=== PATIENT | male | born 1995 | race Caucasian/White ===

== ENCOUNTER 2018-02-24 21:07 | Emergency (ER) | payer SELFPAY ==
--- NOTE | 2018-02-25 00:20 | ER Document Report ---
HPI - HPI Pain Level: 5 Notes: Otherwise healthy 22-year-old male who presents with left upper tooth pain 3 days. Patient reports that he called a dentist who reports that they are unable to do an extraction if there is an active infection going on. Patient denies any fevers. Patient reports multiple "bad teeth". Past Medical History - General Information source: Patient - Social History Smoking Status: Current Every Day Smoker Frequency of alcohol use: None Drug Abuse: None Family History: Reviewed & Not Pertinent - Medical History Medical History: Negative Surgical Hx: Negative - Immunizations Immunizations up to date: Yes Vertical Provider Document - CONSTITUTIONAL Notes: PHYSICAL EXAMINATION: GENERAL: Well-appearing, well-nourished and in no acute distress. HEAD: Atraumatic, normocephalic. EYES: Pupils equal round extraocular movements intact, conjunctiva are normal. ENT: Nares patent, erythema noted to left upper gumline, multiple dental caries identified with fractured tooth where pain is located. No drainable abscess identified. NECK: Normal range of motion LUNGS: No respiratory distress Musculoskeletal: Normal range of motion NEUROLOGICAL: Normal speech, normal gait. PSYCH: Normal mood, normal affect. SKIN: Warm, Dry, normal turgor, no rashes or lesions noted. - INFECTION CONTROL TRAVEL OUTSIDE OF THE [place] IN LAST 30 DAYS: No Course - Re-evaluation Re-evalutation: No drainable abscess is identified, there is obvious erythema to the area of pain. I will give patient a hydrocodone dispense pack and placed him on Penicillin VK. Patient will be instructed to follow-up with a dentist, multiple resources are given for free dental clinic here in [place]. Patient encouraged to call this morning so that by the time he has an appointment any possible infection will have been under control so they can do the extraction. Discharge - Discharge Clinical Impression: Dental abscess Condition: Stable Disposition: HOME, SELF-CARE Instructions: Dentist Additional Instructions: TOOTHACHE: Your pain is due to dental decay. The tooth must be repaired in order for you to feel better. You will, therefore, be referred to a dentist. We do not have dentists on the staff at [facility]. Severe swelling or drainage around a tooth usually means a dental abscess. This also requires evaluation and treatment by the dentist, but antibiotics may be prescribed while awaiting dental treatment. You should be rechecked immediately if you develop major swelling of the face, increasing pain, a lump in the jaw or gums, headache, difficulty swallowing, or fever. ORAL NARCOTIC MEDICATION: You have been given a prescription for pain control. This medication is a narcotic. It's best taken with food, as nausea can result if taken on an empty stomach. Don't operate machinery or drive within six hours of taking this medication. Do not combine this medicine with alcohol, or with any medication which can cause sedation (such as cold tablets or sleeping pills) unless you get permission from the physician. Narcotics tend to cause constipation. If possible, drink plenty of fluids and eat a diet high in fiber and fruits. Please be aware that prescription narcotics also have the potential for abuse. People become addicted to these medications because of the general sense of wellbeing that they induce. This feeling along with a significant reduction in tension, anxiety, and aggression provides a stimulating seductive quality to these drugs. Once your pain is under control, we encourage you to discard your unused narcotics. PENICILLIN V K: You have been given a prescription for Penicillin VK. Your physician has determined that this is the best antibiotic for your condition. Pen VK can be taken with meals, however more of the antibiotic gets into the bloodstream if it's taken on an empty stomach. Penicillin usually has no side effects. However, allergy to penicillins is common. If you have had an allergic reaction to any drug of the penicillin family, you should never take any other penicillin. Notify your doctor at once if you develop hives, itching, swelling, faintness, or shortness of breath. Ibuprofen Ibuprofen is an excellent, safe drug for pain control. In addition, it has potent antiinflammatory effects which are beneficial, especially in the treatment of injuries, arthritis, or tendonitis. It's best to take ibuprofen with food. Persons with ulcer disease or allergy to aspirin should notify their physician of this before taking ibuprofen. Take the medication exactly as prescribed. Don't take additional doses unless instructed to do so by your doctor. If you develop wheezing, shortness of breath, hives, faintness, stomach pain, vomiting, or dark black stools, return for re-evaluation at once. FOLLOW-UP CARE: You have been referred for follow-up care to the dentists listed below. Call the dentists office for an appointment as you were instructed or within the next two days. If you experience worsening or a significant change in your symptoms, notify the physician immediately or return to the Emergency Department at any time for re-evaluation. [facility] [address] [place], [place] Friday mornings, by appointment [facility] [address] [place] [address] [facility] [address] [facility] [address] [facility] [address] [facility] [email or web address] Prescriptions: Lidocaine HCl [Xylocaine 2% Viscous Soln 20 ml Udcup] 20 ml MM TID #1 udc Penicillin V Potassium [Penicillin Vk 500 mg Tablet] 500 mg PO BID #20 tablet
[2018-02-25] MEDS ORDERED: PENICILLIN V POTASSIUM 250 MG TABLET PO ONE (00:22)
[2018-02-25] MEDS ORDERED: HYDROCODONE/ACETAMINOPHEN 5-325 MG (6 TAB/ER DISP) PO PRN (00:22)
[2018-02-25 00:48] VITALS: BP 121/68
== END 2018-02-25 00:49 | disposition home or self-care (01) ==
LOC: ER 21:07
DX: K04.7 Periapical abscess without sinus (principal); K08.89 Other specified disorders of teeth and supporting structures; F17.200 Nicotine dependence, unspecified, uncomplicated
CPT/HCPCS: 99282

== ENCOUNTER 2018-12-08 17:31 | Emergency (ER) | payer SELFPAY ==
--- NOTE | 2018-12-08 18:34 | ER Document Report ---
HPI <MIKIEQUITA - Last Filed: 12/08/18 21:44> - HPI Pain Level: 5 Notes: Patient is an otherwise healthy 23-year-old male presenting to the emergency department with pain to the left side of his head that is been present for 3 weeks. Patient reports that he feels like a dull pain, states it is very sensitive to touch reports this is located just above his left ear. He denies any trauma to the area. He denies any other symptoms to include fever or headache. He states that it feels like a pain only localized to this one area. <INDY SANTANA - Last Filed: 12/08/18 22:25> - HPI Time Seen by Provider: 12/08/18 18:15 Past Medical History - General Information source: Patient - Social History Smoking Status: Current Every Day Smoker Frequency of alcohol use: None Drug Abuse: None Family History: Reviewed & Not Pertinent - Medical History Medical History: Negative Renal/ Medical History: Denies: Hx Peritoneal Dialysis Surgical Hx: Negative - Immunizations Immunizations up to date: Yes <INDY SANTANA - Last Filed: 12/08/18 22:25> Vertical Provider Document - CONSTITUTIONAL Notes: PHYSICAL EXAMINATION: GENERAL: Well-appearing, well-nourished and in no acute distress. HEAD: Atraumatic, normocephalic. Tenderness to palpation to area over patient's left parietal lobe consistent with area where patient describes pain. No palpable masses or crepitus noted. EYES: Pupils equal round and reactive to light, extraocular movements intact, sclera anicteric, conjunctiva are normal. ENT: Nares patent, oropharynx clear without exudates. Moist mucous membranes. NECK: Normal range of motion, supple without lymphadenopathy LUNGS: Breath sounds clear to auscultation bilaterally and equal. No wheezes rales or rhonchi. HEART: Regular rate and rhythm without murmurs ABDOMEN: Soft, nontender, nondistended abdomen. No guarding, no rebound. No masses appreciated. Musculoskeletal: Normal range of motion, no pitting or edema. No cyanosis. NEUROLOGICAL: Cranial nerves grossly intact. Normal speech, normal gait. Normal sensory, motor exams PSYCH: Normal mood, normal affect. SKIN: Warm, Dry, normal turgor, no rashes or lesions noted. - INFECTION CONTROL TRAVEL OUTSIDE OF THE [place] IN LAST 30 DAYS: No <INDY SANTANA Kathleen - Last Filed: 12/08/18 22:25> Course - Re-evaluation Re-evalutation: 12/08/18 21:44 I personally evaluated this patient and agree with [facility] plan of care and disposition. I discussed patient's CT findings with the radiologist at this facility. The hemorrhage was questionable. Neurosurgery does not feel that there is acute hemorrhage. Patient is otherwise hemodynamically stable. He has no focal neurologic deficits. He is ambulating without any ataxia or difficulty. There is no external signs on his left scalp to suggest infection or trauma. Patient has tenderness to the left scalp over the lytic lesion. All questions were answered. He is in agreement with close follow-up at the neurosurgeons office tomorrow morning. He was counseled on return precautions. He is stable for discharge. - Vital Signs Vital signs: Temp Pulse Resp BP Pulse Ox 98.4 F 70 16 140/71 H 99 12/08/18 20:14 12/08/18 20:14 12/08/18 20:14 12/08/18 20:14 12/08/18 20:14 <QUITA RANDOLPH - Last Filed: 12/08/18 21:44> - Re-evaluation Re-evalutation: 12/08/18 20:00 Radiology report received for head CT. There is an irregular lytic lesion in the left parietal lobe with cortical breakthrough on both the inner and outer table. There is also extension within the diplopic space superiorly with lobular lytic contours. This could reflect a hemorrhage versus AV malformation versus neoplastic process. Neurosurgery consult is recommended by radiologist. I discussed this with my attending physician Dr. Randolph who is coming to evaluate the patient. 12/08/18 20:12 Call placed to [facility] to speak with neurosurgery sevbeverly. 12/08/18 20:51 Spoke with neurosurgeon at [facility], Dr. Hugo Emanuel. He would like patient to call him in the office tomorrow morning to schedule an appointment. He reviewed the images from the CTs which were transferred via our radiology department. He does not feel patient has any acute life-threatening ongoing events that requires emergent transfer. He does want to work the patient up for possible biopsy. - Vital Signs Vital signs: Temp Pulse Resp BP Pulse Ox 99.1 F 99 18 161/71 H 99 12/08/18 17:32 12/08/18 17:32 12/08/18 17:32 12/08/18 17:32 12/08/18 17:32 <INDY SANTANA - Last Filed: 12/08/18 22:25> Discharge <QUITA RANDOLPH Cheri - Last Filed: 12/08/18 21:44> <INDY SANTANA - Last Filed: 12/08/18 22:25> - Discharge Clinical Impression: Left parietal lobe lesion Head pain Qualifiers: Headache type: unspecified Headache chronicity pattern: unspecified pattern Intractability: not intractable Qualified Code(s): R51 - Headache Condition: Stable Disposition: HOME, SELF-CARE Additional Instructions: As discussed there is an irregularity on your CT scan today. There is a lesion on the left parietal bone and lobe. This could be cancerous. It is important for you to follow-up with neurosurgery so that they can do a thorough work-up on you. I have contacted Dr. Hugo Emanuel who is a neurosurgeon at [facility]. He would like to see you in the office tomorrow. Please call them first thing in the morning. Return to the emergency department with any new or worsening symptoms to include seizures, dizziness, lethargy, confusion or any other symptom that is concerning to you. I have written you a work note for today and tomorrow. Please have these neurosurgeon write you another work note if he needs you out of work any other days the rest of the week. Dr. Hugo Emanuel [facility] [address] [place], [place] [id number] Forms: Return to Work
--- NOTE | 2018-12-08 19:44 | RADIOLOGY REPORT (SQ) ---
EXAM DESCRIPTION: CT HEAD WITHOUT COMPLETED DATE/TIME: 12/08/2018 7:18 pm REASON FOR STUDY: pain superior to left ear x3 weeks COMPARISON: None. TECHNIQUE: Axial images acquired through the brain without intravenous contrast. Images reviewed wi th bone, brain and subdural windows. Images stored on PACS. All CT scanners at this facility use dose modulation, iterative reconstruction, and/or weight based d osing when appropriate to reduce radiation dose to as low as reasonably achievable (ALARA). [facility]: Dose Right [facility]: CareDose [facility]: Dose Right [facility]: Teradose 4D [facility]: [employer] RADIATION DOSE: CT Rad equipment meets quality standard of care and radiation dose reduction techniq ues were employed. CTDIvol: 53.2 mGy. DLP: 964 mGy-cm. mGy. LIMITATIONS: None. FINDINGS: VENTRICLES: Normal size and contour. CEREBRUM: Small 1.5 cm crescent of increased density in the left parietal lobe along the inner table of the skull at the site of a lytic lesion, possible hemorrhage. No midline shift. No evidence for acute infarction. Normal flores/white matter differentiation. No areas of low density in the white debbie er. CEREBELLUM: No masses. No hemorrhage. No alteration of density. No evidence for acute infarction. ORBITS AND GLOBE: No intra- or extraconal masses. Normal contour of globe without masses. CALVARIUM: Irregular lytic lesion in the left parietal bone with cortical breakthrough on both the in ner and outer table, there is also extension within the diploic space superiorly with lobular lytic c ontours. PARANASAL SINUSES: No fluid or mucosal thickening. SOFT TISSUES: No mass or hematoma. OTHER: No other significant finding. IMPRESSION: Irregular lytic lesion in the left parietal bone with cortical breakthrough on both the inner and outer table, there is also extension within the diploic space superiorly with lobular lytic contours. Small 1.5 cm crescent of increased density in the left parietal lobe along the inner table of the sku ll at the site of a lytic lesion, possible hemorrhage. This may reflect an arteriovenous malformation, neoplastic process is not excluded. Neurosurgical co nsultation is recommended. EVIDENCE OF ACUTE STROKE: NO. COMMENT: Results were called the emergency room physician at 1930 hours. Results were confirmed and read back. Quality ID # [id number]: Final reports with documentation of one or more dose reduction techniques (e.g., Au tomated exposure control, adjustment of the mA and/or kV according to patient size, use of iterative reconstruction technique) TECHNICAL DOCUMENTATION: JOB ID: [id number] [place]-72 2010 [employer]- All Rights Reserved Reading location - IP/workstation name: [email or web address]
[2018-12-08 20:14] VITALS: BP 140/71
== END 2018-12-08 21:36 | disposition home or self-care (01) ==
LOC: ER 17:31
DX: R51 Headache (principal); G93.9 Disorder of brain, unspecified; F17.200 Nicotine dependence, unspecified, uncomplicated
CPT/HCPCS: 70450; 99283